=== PATIENT | female | born 1955 | race Asian ===

== ENCOUNTER 2017-12-09 20:43 | Emergency (ER) | payer MEDICAID, OTHER ==
[~2017-12-09] VITALS: Ht 157.5 cm; Wt 57.3 kg
[2017-12-09] MEDS ORDERED: ONDANSETRON ODT 4 MG PO ONE (22:30)
[2017-12-09] MEDS ORDERED: NITROGLYCERIN OINT 2%, 1GM TP ONE (22:30)
[2017-12-09] MEDS ORDERED: SODIUM CHLORIDE FLUSH 10ML SYR IVF ONE (22:30)
[2017-12-09] MEDS ORDERED: ASPIRIN 81 MG TABLET CHEW PO ONE (22:30)
[2017-12-09 22:47] LABS: BASOPHILS # (AUTO) 0.01 x10^3/uL (0-0.1); BASOPHILS % (AUTO) 0 % (0-1); EOSINOPHILS # (AUTO) 0.02 x10^3/uL (0-0.4); EOSINOPHILS % (AUTO) 1 % (1-7); LYMPHOCYTES # (AUTO) 1.26 x10^3/uL (1-3.4); LYMPHOCYTES % (AUTO) 28 % (22-44); MD NO; MEAN CORPUSCULAR HGB CONC 34.2 g/dL (32.4-35.8); MEAN CORPUSCULAR VOLUME 90.5 fL (80-100); MEAN PLATELET VOLUME 8.2 fL (7.4-10.4); MONOCYTES # (AUTO) 0.22 x10^3/uL (0.2-0.8); MONOCYTES % (AUTO) 5 % (2-9); NEUTROPHILS # (AUTO) 2.94 x10^3/uL (1.8-6.8); NEUTROPHILS % (AUTO) 66 % (42-75); PLATELET COUNT 195 x10^3/uL (130-400); RED BLOOD COUNT 4.49 x10^6/uL (3.82-5.3); RED CELL DISTRIBUTION WIDTH 13.3 % (9.6-15.2)
[2017-12-09] MEDS ORDERED: ONDANSETRON ODT 4 MG ONE (22:48)
[2017-12-09 22:59] LABS: ALANINE AMINOTRANSFERASE 29 U/L (12-78); ALBUMIN 3.9 g/dL (3.4-5.0); ANION GAP 10 mmol/L (5-15); CALCIUM 9.1 mg/dL (8.5-10.1); CHLORIDE 107 mmol/L (98-107); CREATININE 0.89 mg/dL (0.55-1.02)
[2017-12-09 23:01] LABS: ALKALINE PHOSPHATASE 51 U/L (45-117); BILIRUBIN,TOTAL 0.3 mg/dL (0.2-1.0); TROPONIN I < 0.015 ng/mL (0.000-0.045)
[2017-12-09 23:07] LABS: MICROSCOPIC NOT IND
[2017-12-09 23:12] LABS: CULTURE INDICATED? NO
[2017-12-09] MEDS ORDERED: ASPIRIN 81 MG TABLET CHEW ONE (23:24)
[2017-12-09] MEDS ORDERED: IBUPROFEN 200 MG TABLET ONE (23:50)
[2017-12-09 23:58] VITALS: BP 144/71
== END 2017-12-10 00:11 | disposition home or self-care (01) ==
LOC: ED 23:35
DX: I10 Essential (primary) hypertension (principal); E78.00 Pure hypercholesterolemia, unspecified; E78.5 Hyperlipidemia, unspecified
CPT/HCPCS: 36415; 70450; 71045; 80053; 81003; 83880; 84484; 85025; 93005; 99285; Q0162